=== PATIENT | female | born 1990 | race Caucasian/White ===

== ENCOUNTER 2016-12-05 09:43 | Inpatient (IN) | payer OTHER ==
[~2016-12-05] VITALS: Ht 154.9 cm; Wt 80.0 kg
[2016-12-05] MEDS ORDERED: MISOPROSTOL 200 MCG TAB PR PRN ×3 (10:00→18:30)
[2016-12-05] MEDS ORDERED: CEFAZOLIN 2 GM/50 ML (PMX) 50 ML IV SCH ×2 (10:00→18:30)
[2016-12-05] MEDS ORDERED: CARBOPROST 250 MCG INJ IM PRN ×3 (10:00→18:30)
[2016-12-05] MEDS ORDERED: METHYLERGONOVINE 0.2 MG INJ IM PRN ×3 (10:00→18:30)
[2016-12-05] MEDS ORDERED: OXYTOCIN 30 UNITS/LR 500 ML IV PRN ×3 (10:00→18:30)
--- NOTE | 2016-12-05 10:11 | TRIAGE ---
OB Triage Datetime Report Generated by CPN: 12/05/2016 10:11 Datetime: 12/05/2016 10:10 Assessment Type: Admission Assessment Vaginal Bleeding: None Maternal Assessment Level of Consciousness: Fully Conscious DTR's/Clonus: DTRs 2+; No Clonus Headache: Denies Blurred Vision: No Respiratory Effort: Unlabored; Regular Rhythm; Equal Expansion Breath Sounds, Left: Clear and Equal Breath Sounds, Right: Clear and Equal Nausea/Vomiting: Denies RUQ Epigastric Pain: Denies Facial Edema: None Fall Risk Assessment History of Falling: (0) No Secondary Diagnosis: (0) No Ambulatory Aid: (0) Bedrest/Nurse Assist IV Therapy: (0) No Gait: (0) Normal/Bedrest/Immobile Mental Status: (0) Oriented to Own Ability Pain Assessment Pain Scale: 9 Datetime: 12/05/2016 10:08 Time of Arrival: 12/05/2016 10:00 EGA: 39.0 Arrived By: Ambulatory Arrived From: Home Chief Complaint: UCS SINCE 0500 Movement: Present Contractions: Regular Time Contractions Began: 12/05/2016 05:00 Contractions: Q 10 AT HOME Rupture of Membranes: Denies Vaginal Bleeding: None Vaginal Discharge: Denies Recent Sexual Intercouse: Denies Abdominal Trauma: Not Applicable Patient Complaints: Contractions Time Provider Notified: 12/05/2016 10:05 Provider Notified: DR ROSAS Initial Plan: EFM,ALL DR ROSAS Datetime: 12/05/2016 10:07 Maternal Assessment Level of Consciousness: Fully Conscious DTR's/Clonus: DTRs 2+; No Clonus Headache: Denies Blurred Vision: No Respiratory Effort: Unlabored; Regular Rhythm; Equal Expansion Breath Sounds, Left: Clear and Equal Breath Sounds, Right: Clear and Equal Nausea/Vomiting: Denies RUQ Epigastric Pain: Denies Facial Edema: None Temperature Route: Axillary Fall Risk Assessment History of Falling: (0) No Secondary Diagnosis: (0) No Ambulatory Aid: (0) Bedrest/Nurse Assist IV Therapy: (0) No Gait: (0) Normal/Bedrest/Immobile Mental Status: (0) Oriented to Own Ability Fall Score: 0 Fall Risk Score Definition: No Risk: No action required
[2016-12-05 10:14] VITALS: Ht 154.9 cm; Wt 80.0 kg
[2016-12-05 10:15] VITALS: BP 125/70; PULSE 77; RESP 20
[2016-12-05] MEDS ORDERED: PREN1TAB79 PO (10:20)
[2016-12-05 10:24] LABS: ADD SCAN DIFF NO
[2016-12-05] MEDS: LACTATED RINGER'S 1,000 ML IV SCH ×2 (10:31→11:43)
[2016-12-05 10:33] LABS: BASOPHILS % 0.2 % (0.0-2.0); EOSINOPHILS # 0.3 10^3/ul (0.0-0.5); EOSINOPHILS % 3.5 % (0.0-7.0); HEMATOCRIT 32.4 % (37.0-47.0); HEMOGLOBIN 10.3 g/dl (12.0-16.0); LYMPHOCYTES # 2.2 10^3/ul (0.8-2.9); LYMPHOCYTES % 25.2 % (15.0-51.0); MEAN CORPUSCULAR HEMOGLOBIN 26.5 pg (29.0-33.0); MEAN CORPUSCULAR HGB CONC 31.8 g/dl (32.0-37.0); MEAN CORPUSCULAR VOLUME 83.5 fl (82.0-101.0); MEAN PLATELET VOLUME 11.4 fl (7.4-10.4); MONOCYTE # 0.5 10^3/ul (0.3-0.9); MONOCYTES % 5.5 % (0.0-11.0); NEUTROPHIL # 5.7 10^3/ul (1.6-7.5); NEUTROPHILS % 65.1 % (39.0-77.0); PLATELET COUNT 183 10^3/UL (140-415); RED BLOOD COUNT 3.88 10^6/ul (4.20-5.40); RED CELL DISTRIBUTION WIDTH 15.2 % (11.5-14.5); WHITE BLOOD COUNT 8.7 10^3/ul (4.8-10.8)
[2016-12-05 11:12] LABS: INR 0.85; PROTIME 11.6 Sec (12.2-14.2); PT RATIO 0.9
[2016-12-05 11:13] LABS: PARTIAL THROMBOPLASTIN TIME 28.8 Sec (25.0-35.0)
[2016-12-05] MEDS ORDERED: OXYTOCIN 10 UNIT INJ ONE (12:06)
[2016-12-05] MEDS ORDERED: PHENYLephrine (100 MCG/ML) 5ML SYG ONE (12:06)
[2016-12-05] MEDS ORDERED: METOCLOPRAMIDE 10 MG INJ ONE (12:06)
[2016-12-05] MEDS ORDERED: morphine SULFATE/PF (10 MG/10 ML) INJ ONE (12:06)
[2016-12-05] MEDS ORDERED: FENTAnyl 50 MCG/ML VIAL ONE (12:06)
[2016-12-05] MEDS ORDERED: ONDANSETRON 4 MG INJ IV PRN ×4 (13:00→18:30)
[2016-12-05] MEDS ORDERED: DIPHENHYDRAMINE 50 MG INJ IV PRN ×4 (13:00→18:30)
[2016-12-05] MEDS ORDERED: KETOROLAC 30 MG INJ IV PRN ×2 (13:00→18:30)
[2016-12-05] MEDS ORDERED: HYDROmorphONE (0.2 MG/ML) 10ML SYG IV PRN ×6 (13:00→18:30)
[2016-12-05] MEDS ORDERED: TRIMETHOBENZAMIDE 100 MG/ML VIAL IM PRN ×2 (13:00→18:30)
[2016-12-05] MEDS ORDERED: EPHEDrine SULFATE 50 MG/5 ML SYG IV PRN ×2 (13:00→18:30)
[2016-12-05] MEDS ORDERED: LABETALOL HCL 20MG INJ IV PRN ×2 (13:00→18:30)
[2016-12-05] MEDS ORDERED: MIDAZOLAM 1 MG/ML 2 ML INJ IV PRN ×2 (13:00→18:30)
[2016-12-05] MEDS ORDERED: ZOLPIDEM 5 MG TAB PO PRN ×2 (13:00→18:30)
[2016-12-05] MEDS ORDERED: hydrALAzine 20 MG INJ IV PRN ×2 (13:00→18:30)
[2016-12-05] MEDS ORDERED: FENTAnyl 50 MCG/ML VIAL IV PRN ×6 (13:00→18:30)
[2016-12-05] MEDS ORDERED: morphine 2 MG INJ IV PRN ×4 (13:00→18:30)
[2016-12-05] MEDS ORDERED: NALOXONE (0.4 MG/ML) INJ IV PRN ×2 (13:00→18:30)
[2016-12-05] MEDS ORDERED: MEPERIDINE 25 MG INJ IV PRN ×2 (13:00→18:30)
--- NOTE | 2016-12-05 14:45 | HP ---
Date/Time of Note Date/Time of Note DATE: 12/05/16 TIME: 14:29 OB - History Hx of Present Free Text/Dictation This is a 26 years old female 7 para 6 with EDC of December 12, 2016 at 39 weeks gestation with the history of 6 previous section and requests for bilateral tubal ligation at the time of section, admitted to [facility] labor and delivery room being prepared to undergo repeat section she has recently transferred her care from another clinic to [facility] and according to her record her was not complicated with gestational diabetes -induced hypertension the only significant issue regarding her past surgical history is 6 previous section She has requested voluntary sterilization bilateral tubal ligation at the time of her section the failure rate of this procedure increased risks of ectopic in the future failure to conceive has been discussed with the patient extensively knowing all the above she would like to proceed with the tubal ligation at the time of her section. Estimated Due Date: Dec 12, 2016 : 7 Para: 6 Care: Limited Care Ultrasounds: Normal mid trimester US Obstetrical Complications: None Medical Complications: None Past Family/Social History * Past Medical, Surgical, Family and Obstetric Histories reviewed from chart. Rubella: immune RPR/VDRL: Negative GBS Status: Negative HBsAG: Negative OB Admission Exam Vital Signs Vital Signs Vital Signs Date Time Temp Pulse Resp B/P Pulse Ox O2 Delivery O2 Flow Rate FiO2 12/05/16 10:15 98.3 77 20 125/70 Room Air Physical Exam HEENT: WNL Heart: Rhythm Normal Lungs: Clear, Equal Abdomen: WNL Extremities: Normal Cervical Dilatation: other (No pelvic examination) Accelerations: Accelerations Present Decelerations: No Decelerations Intensity: Mild Last 72 hours Lab Results CBC & BMP 12/05/16 09:30 OB Assessment/Plan Reason for admission: other (Repeat section, bilateral tubal ligation) Plan: Section, Other (Complication of the section for the seventh time and bilateral tubal ligation including but not limited to bowel and bladder injury wound infection hemorrhage wound dehiscence has been discussed with the patient and she would like to proceed with the operation ) FRANCA ROSAS MD December 05, 2016 14:39
--- NOTE | 2016-12-05 17:09 | OPR ---
DATE OF OPERATION: 12/05/2016 PREOPERATIVE DIAGNOSES: 1. Intrauterine at 39 weeks' gestation. 2. History of 6 previous section. 3. Request for voluntary sterilization, bilateral tubal ligation at the time of section. POSTOPERATIVE DIAGNOSES: 1. Intrauterine at 39 weeks' gestation. 2. History of previous section. 3. Request for voluntary sterilization, bilateral tubal ligation at the time of section. PROCEDURE: Repeat transverse low cervical section, bilateral tubal ligation. SURGEON: Franca Mendoza MD [employer] CHIEF: Alfonso Thompson MD ANESTHESIA: Spinal. ANESTHESIOLOGIST: Dr. Salazar. FINDINGS: Live baby girl with the 8 and 9. Baby weight 7 pounds 6 ounces. DETAILS OF THE PROCEDURE: Under satisfactory spinal anesthesia, the patient was prepped and draped and placed in supine position, tilted to the left. Pfannenstiel incision was made, incision carried through the subcutaneous tissue. Bleeders brought under control with electrocautery. Fascia incis ed to the length of the incision. Rectus muscle divided in midline. Peritoneum entered through a t ransverse incision. Exploration of abdomen revealed a gravid uterus, normal appearing tubes and ova manan, extremely thinned out lower segment of the uterus to the thickness of 1 mm. Bladder flap gent ly was developed. Transverse incision was made in the lower segment of the uterus. Amniotic sac ru ptured. Clear amniotic fluid noted. Live baby girl was delivered from unengaged vertex. Nasal oropharyngeal suction was performed and b aron handed to the team for immediate attention. Patient received 20 units of Pitocin. Venus centa delivered manually intact. Uterine cavity cleaned with wet sponge and drainage established. Uterus closed in 2 layers using Monocryl #1 in continuous fashion. Bilateral tubal ligation perform ed by identifying the fimbria and the ampullar section of the right fallopian tube. Suture material used #0 plain catgut was reinforced with the same suture material. That portion of the tube was ex cised, the cut end of the tube was cauterized and the specimen submitted to pathology. The same pro cedure performed for the opposite side. Peritoneal cavity irrigated with warm saline. A second sponge, needle and instrument reported to be correct. Abdominal peritoneum closed with 2-0 chromic catgut continuously. Rectus muscle approxim ated with few interrupted 2-0 chromic catgut. Fascia closed with #1 PDS in a continuous fashion. S ubcutaneous tissue approximated with 2-0 chromic catgut. Skin closed with sobia. Estimated blood loss 600 mL. Urine bag contained 200 mL of clear urine. Patient tolerated procedure well, transfe rred to recovery room in a good condition. Dictated By: FRANCA SMITH/DELIA Conf#: [id number] DID#: [id number]
[2016-12-05] MEDS ORDERED: OXYTOCIN 30 UNITS/LR 500 ML IVPB ONE (17:34)
[2016-12-05 18:00] VITALS: BP 116/67; PULSE 70; RESP 18
[2016-12-05] MEDS ORDERED: OXYTOCIN 30 UNITS/LR 500 ML IV SCH (18:11)
[2016-12-05] MEDS ORDERED: LACTATED RINGER'S 1,000 ML IV SCH (18:16)
[2016-12-05] MEDS ORDERED: LANOLIN 7 GM TUBE TOP PRN (18:30)
[2016-12-05] MEDS ORDERED: OXYCODONE/ACETAMINOPHEN (5/325) TAB PO PRN (18:30)
[2016-12-05] MEDS ORDERED: CEFAZOLIN 1 GM/50 ML (PMX) 50 ML IVPB SCH ×2 (18:30→20:30)
[2016-12-05] MEDS ORDERED: ACETAMINOPHEN/CODEINE #3 TAB PO PRN ×2 (18:30)
[2016-12-05 19:45] VITALS: BP 111/58; PULSE 72; RESP 18
[2016-12-05] MEDS: SENNA/DOCUSATE NA (8.6MG/50MG) TAB PO SCH (20:48)
[2016-12-05] MEDS: IBUPROFEN 600 MG TAB PO SCH (23:40)
[2016-12-06 00:02] VITALS: BP 115/58; PULSE 66; RESP 18
[2016-12-06 04:00] VITALS: BP 116/75; PULSE 70; RESP 18
[2016-12-06] MEDS: IBUPROFEN 600 MG TAB PO SCH ×4 (06:00→23:34)
[2016-12-06 07:19] LABS: ADD SCAN DIFF NO
[2016-12-06 07:29] LABS: BASOPHILS % 0.3 % (0.0-2.0); EOSINOPHILS # 0.2 10^3/ul (0.0-0.5); EOSINOPHILS % 1.7 % (0.0-7.0); HEMATOCRIT 24.6 % (37.0-47.0); LYMPHOCYTES # 1.8 10^3/ul (0.8-2.9); LYMPHOCYTES % 18.1 % (15.0-51.0); MEAN CORPUSCULAR HEMOGLOBIN 27.5 pg (29.0-33.0); MEAN CORPUSCULAR HGB CONC 32.5 g/dl (32.0-37.0); MEAN CORPUSCULAR VOLUME 84.5 fl (82.0-101.0); MEAN PLATELET VOLUME 11.5 fl (7.4-10.4); MONOCYTE # 0.6 10^3/ul (0.3-0.9); NEUTROPHIL # 7.3 10^3/ul (1.6-7.5); NEUTROPHILS % 73.5 % (39.0-77.0); PLATELET COUNT 153 10^3/UL (140-415); RED BLOOD COUNT 2.91 10^6/ul (4.20-5.40); RED CELL DISTRIBUTION WIDTH 15.1 % (11.5-14.5); WHITE BLOOD COUNT 9.9 10^3/ul (4.8-10.8)
[2016-12-06 08:00] VITALS: BP 113/65; PULSE 88; RESP 18
[2016-12-06] MEDS: SENNA/DOCUSATE NA (8.6MG/50MG) TAB PO SCH ×2 (08:24→21:09)
--- NOTE | 2016-12-06 11:57 | PN ---
Date/Time of Note Date/Time of Note DATE: 12/06/16 TIME: 11:56 OB Subjective Subjective Subjective Post day 1 Afebrile vital signs stable abdomen soft incision dry mild abdominal distention bowel sounds present lochia moderate extremity normal ambulation encouraged diet advanced as tolerated Laboratory Tests Test 12/06/16 06:45 White Blood Count 9.910^3/ul Red Blood Count 2.9110^6/ul Hemoglobin 8.0g/dl Hematocrit 24.6% Mean Corpuscular Volume 84.5fl Mean Corpuscular Hemoglobin 27.5pg Mean Corpuscular Hemoglobin Concent 32.5g/dl Red Cell Distribution Width 15.1% Platelet Count 78094^3/UL Mean Platelet Volume 11.5fl Neutrophils % 73.5% Lymphocytes % 18.1% Monocytes % 6.0% Eosinophils % 1.7% Basophils % 0.3% Nucleated Red Blood Cells % 0.0/100WBC Neutrophils # 7.310^3/ul Lymphocytes # 1.810^3/ul Monocytes # 0.610^3/ul Eosinophils # 0.210^3/ul Basophils # 0.010^3/ul Nucleated Red Blood Cells # 0.010^3/ul Current Medications Medications (Trade) Dose Ordered Sig/[place] Route PRN Reason Start Time Stop Time Status Last Admin Dose Admin Lactated Ringer's 1,000 ml @ 125 mls/hr Q8H IV 12/05/16 09:58 12/05/16 18:26 DC 12/05/16 11:43 Cefazolin Sodium/ Dextrose 50 ml @ 100 mls/hr ONCE IV 12/05/16 10:00 12/05/16 18:26 DC Oxytocin/Lactated Ringer's 500 ml @ 0 mls/hr ONCE PRN IV For Hemorrhage Management 12/05/16 10:00 12/05/16 18:26 DC 12/05/16 14:16 Methylergonovine Maleate (Methergine) 0.2 mg ONCE PRN IM VAGINAL BLEEDING 12/05/16 10:00 12/05/16 18:26 DC Carboprost Tromethamine (Hemabate) 250 mcg ONCE PRN IM VAGINAL BLEEDING 12/05/16 10:00 12/05/16 18:26 DC Misoprostol (Cytotec) 1,000 mcg ONCE PRN [place] VAGINAL BLEEDING 12/05/16 10:00 12/05/16 18:26 DC Morphine Sulfate (Duramorph) 10 mg STK-MED ONCE .ROUTE 12/05/16 12:06 12/05/16 12:07 DC Fentanyl (Sublimaze) 100 mcg STK-MED ONCE .ROUTE 12/05/16 12:06 12/05/16 12:07 DC Metoclopramide HCl (Reglan) 10 mg STK-MED ONCE .ROUTE 12/05/16 12:06 12/05/16 12:07 DC Oxytocin (Oxytocin) 10 units STK-MED ONCE .ROUTE 12/05/16 12:06 12/05/16 12:07 DC Phenylephrine HCl (Robert-Synephrine Inj Syg) 500 mcg STK-MED ONCE .ROUTE 12/05/16 12:06 12/05/16 12:07 DC Hydromorphone HCl (Dilaudid (Rec)) 0.2 mg PACU ORDER PRN IV MILD PAIN LEVEL 1-3 12/05/16 13:00 12/05/16 18:27 DC Hydromorphone HCl (Dilaudid (Rec)) 0.4 mg PACU ORDER PRN IV MODERATE PAIN LEVEL 4-6 12/05/16 13:00 12/05/16 18:27 DC Hydromorphone HCl (Dilaudid (Rec)) 0.6 mg PACU ORDER PRN IV SEVERE PAIN LEVEL 7-10 12/05/16 13:00 12/05/16 18:27 DC Fentanyl (Sublimaze) 25 mcg PACU ORDER PRN IV MILD PAIN LEVEL 1-3 12/05/16 13:00 12/05/16 18:27 DC Fentanyl (Sublimaze) 50 mcg PACU ODER PRN IV MODERATE PAIN LEVEL 4-6 12/05/16 13:00 12/05/16 18:27 DC Fentanyl (Sublimaze) 75 mcg PACU ORDER PRN IV SEVERE PAIN LEVEL 7-10 12/05/16 13:00 12/05/16 18:27 DC Ondansetron HCl (Zofran Inj) 4 mg PACU ORDER PRN IV NAUSEA AND/OR VOMITING 12/05/16 13:00 12/05/16 18:27 DC Trimethobenzamide HCl (Tigan) 200 mg PACU ORDER PRN IM NAUSEA AND/OR VOMITING 12/05/16 13:00 12/05/16 18:27 DC Labetalol HCl (Labetalol) 5 mg PACU ORDER PRN IV HIGH BLOOD PRESSURE 12/05/16 13:00 12/05/16 18:27 DC Hydralazine HCl (Apresoline) 5 mg PACU ORDER PRN IV HIGH BLOOD PRESSURE 12/05/16 13:00 12/05/16 18:27 DC Ephedrine Sulfate 5 mg PACU ORDER PRN IV MAP LESS THAN 60 12/05/16 13:00 12/05/16 18:27 DC Meperidine HCl (Demerol) 25 mg PACU ORDER PRN IV POST-OP RIGORS 12/05/16 13:00 12/05/16 18:27 DC Diphenhydramine HCl (Benadryl) 25 mg PACU ORDER PRN IV PRURITUS 12/05/16 13:00 12/05/16 18:27 DC Midazolam HCl (Versed) 0.5 mg PACU ORDER PRN IV ANXIETY 12/05/16 13:00 12/05/16 18:27 DC Naloxone HCl (Narcan) 0.1 mg Q2M PRN IV FOR RESP RATE 8 OR LESS 12/05/16 13:00 12/05/16 18:27 DC Ketorolac Tromethamine (Toradol) 30 mg Q6H PRN IV PAIN 12/05/16 13:00 12/05/16 18:27 DC 12/05/16 15:29 Morphine Sulfate (morphine) 2 mg Q3H PRN IV PAIN LEVEL 1-5 12/05/16 13:00 12/05/16 18:27 DC Morphine Sulfate (morphine) 4 mg Q3H PRN IV PAIN LEVEL 6-10 12/05/16 13:00 12/05/16 18:27 DC Diphenhydramine HCl (Benadryl) 25 mg Q6H PRN IV ITCHING 12/05/16 13:00 12/05/16 18:27 DC Ondansetron HCl (Zofran Inj) 4 mg Q6H PRN IV NAUSEA AND/OR VOMITING 12/05/16 13:00 12/05/16 18:27 DC Zolpidem Tartrate (Ambien) 5 mg HS MAY REPEAT X 1 PRN PO INSOMNIA 12/05/16 13:00 12/05/16 18:27 DC Miscellaneous Information Duramorph: 0.2 mg Spi... GIVEN XX 12/05/16 13:00 12/05/16 13:01 DC Oxytocin/Lactated Ringer's 500 ml @ 125 mls/hr ONCE ONCE IVPB 12/05/16 17:34 12/05/16 18:27 DC 12/05/16 17:41 Acetaminophen/ Codeine Phosphate (Tylenol No.3) 1 tab Q4H PRN PO PAIN LEVEL 4-6 12/05/16 18:30 Acetaminophen/ Codeine Phosphate (Tylenol No.3) 2 tab Q4H PRN PO PAIN LEVEL 7-10 12/05/16 18:30 Oxycodone/ Acetaminophen (Percocet (5/ 325)) 1 tab Q4H PRN PO PAIN LEVEL 4-6 12/05/16 18:30 Oxycodone/ Acetaminophen (Percocet (5/ 325)) 2 tab Q4H PRN PO PAIN LEVEL 7-10 12/05/16 18:30 Ibuprofen (Motrin) 600 mg Q6 PO 12/06/16 00:00 Simethicone (Mylicon) 160 mg Q8H PRN PO DISTENSION/GAS/BLOATING 12/05/16 18:30 12/06/16 08:24 Senna/Docusate Sodium (Senokot-S) 1 tab BID PO 12/05/16 21:00 12/06/16 08:24 Lanolin (Gzo-[id number]) 1 applic BEDSIDE MEDICATION PRN TOP BEDSIDE FOR VIDA TO NIPPLES 12/05/16 18:30 Diphtheria/ Tetanus/Acell Pertussis 0.5 ml 0.5 ml ONCE ONCE IM* 12/08/16 09:00 12/08/16 09:01 Oxytocin/Lactated Ringer's 500 ml @ 0 mls/hr ONCE PRN IV For Hemorrhage Management 12/05/16 18:30 Methylergonovine Maleate (Methergine) 0.2 mg ONCE PRN IM VAGINAL BLEEDING 12/05/16 18:30 Carboprost Tromethamine (Hemabate) 250 mcg ONCE PRN IM VAGINAL BLEEDING 12/05/16 18:30 Misoprostol 1000 mcg 1,000 mcg ONCE PRN [place] VAGINAL BLEEDING 12/05/16 18:30 Cefazolin Sodium 50 ml @ 100 mls/hr ONCE IVPB 12/05/16 18:30 12/05/16 18:33 DC Oxytocin/Lactated Ringer's 500 ml @ 125 mls/hr Q4H IV 12/05/16 18:11 12/05/16 21:56 Cefazolin Sodium/ Dextrose 50 ml @ 100 mls/hr ONCE IV 12/05/16 18:30 Lactated Ringer's 1,000 ml @ 125 mls/hr Q8H IV 12/05/16 18:16 12/06/16 01:47 Oxytocin/Lactated Ringer's 500 ml @ 0 mls/hr ONCE PRN IV For Hemorrhage Management 12/05/16 18:30 Carboprost Tromethamine (Hemabate) 250 mcg ONCE PRN IM VAGINAL BLEEDING 12/05/16 18:30 Diphenhydramine HCl (Benadryl) 25 mg PACU ORDER PRN IV PRURITUS 12/05/16 18:30 Diphenhydramine HCl (Benadryl) 25 mg Q6H PRN IV ITCHING 12/05/16 18:30 12/06/16 18:29 Ephedrine Sulfate 5 mg PACU ORDER PRN IV MAP LESS THAN 60 12/05/16 18:30 Fentanyl (Sublimaze) 25 mcg PACU ORDER PRN IV MILD PAIN LEVEL 1-3 12/05/16 18:30 12/05/16 23:00 DC Fentanyl (Sublimaze) 50 mcg PACU ODER PRN IV MODERATE PAIN LEVEL 4-6 12/05/16 18:30 12/05/16 23:00 DC Fentanyl (Sublimaze) 75 mcg PACU ORDER PRN IV SEVERE PAIN LEVEL 7-10 12/05/16 18:30 12/05/16 23:00 DC Hydralazine HCl (Apresoline) 5 mg PACU ORDER PRN IV HIGH BLOOD PRESSURE 12/05/16 18:30 Hydromorphone HCl (Dilaudid (Rec)) 0.2 mg PACU ORDER PRN IV MILD PAIN LEVEL 1-3 12/05/16 18:30 12/05/16 23:00 DC Hydromorphone HCl (Dilaudid (Rec)) 0.4 mg PACU ORDER PRN IV MODERATE PAIN LEVEL 4-6 12/05/16 18:30 12/05/16 23:00 DC Hydromorphone HCl (Dilaudid (Rec)) 0.6 mg PACU ORDER PRN IV SEVERE PAIN LEVEL 7-10 12/05/16 18:30 12/05/16 23:00 DC Ketorolac Tromethamine (Toradol) 30 mg Q6H PRN IV PAIN 12/05/16 18:30 12/06/16 18:29 12/06/16 08:24 Labetalol HCl (Labetalol) 5 mg PACU ORDER PRN IV HIGH BLOOD PRESSURE 12/05/16 18:30 Meperidine HCl (Demerol) 25 mg PACU ORDER PRN IV POST-OP RIGORS 12/05/16 18:30 Methylergonovine Maleate (Methergine) 0.2 mg ONCE PRN IM VAGINAL BLEEDING 12/05/16 18:30 Midazolam HCl (Versed) 0.5 mg PACU ORDER PRN IV ANXIETY 12/05/16 18:30 Misoprostol (Cytotec) 1,000 mcg ONCE PRN [place] VAGINAL BLEEDING 12/05/16 18:30 Morphine Sulfate (morphine) 2 mg Q3H PRN IV PAIN LEVEL 1-5 12/05/16 18:30 12/06/16 18:29 Morphine Sulfate (morphine) 4 mg Q3H PRN IV PAIN LEVEL 6-10 12/05/16 18:30 12/06/16 18:29 Naloxone HCl (Narcan) 0.1 mg Q2M PRN IV FOR RESP RATE 8 OR LESS 12/05/16 18:30 12/06/16 18:29 Ondansetron HCl (Zofran Inj) 4 mg PACU ORDER PRN IV NAUSEA AND/OR VOMITING 12/05/16 18:30 12/05/16 23:00 DC Ondansetron HCl (Zofran Inj) 4 mg Q6H PRN IV NAUSEA AND/OR VOMITING 12/05/16 18:30 12/06/16 18:29 Miscellaneous Information (* Miscellaneous Pharmacy Order) Duramorph: 0.2 mg Spi... GIVEN XX 12/05/16 18:30 Trimethobenzamide HCl (Tigan) 200 mg PACU ORDER PRN IM NAUSEA AND/OR VOMITING 12/05/16 18:30 Zolpidem Tartrate 5 mg 5 mg HS MAY REPEAT X 1 PRN PO INSOMNIA 12/05/16 18:30 12/06/16 18:29 Cefazolin Sodium (Ancef 1 Gm/50 ml (Pmx)) 50 ml @ 100 mls/hr ONCE IVPB 12/05/16 20:30 12/05/16 20:59 DC 12/05/16 19:56 FRANCA ROSAS MD December 06, 2016 11:57
[2016-12-06 12:00] VITALS: BP 116/62; PULSE 140; PULSE 83; RESP 18
[2016-12-06 16:00] VITALS: BP 113/59; PULSE 83; RESP 18
[2016-12-06 19:40] VITALS: BP 119/63; PULSE 85; RESP 19
[2016-12-07] MEDS: OXYCODONE/ACETAMINOPHEN (5/325) TAB PO PRN ×4 (00:44→21:03)
[2016-12-07 04:00] VITALS: BP 114/61; PULSE 78; RESP 19
[2016-12-07] MEDS: IBUPROFEN 600 MG TAB PO SCH ×3 (05:31→18:30)
[2016-12-07 08:10] VITALS: BP 107/67; PULSE 66; RESP 16
[2016-12-07] MEDS: SENNA/DOCUSATE NA (8.6MG/50MG) TAB PO SCH ×2 (08:24→21:02)
--- NOTE | 2016-12-07 09:56 | PN ---
Date/Time of Note Date/Time of Note DATE: 12/07/16 TIME: 09:54 OB Subjective Subjective Subjective Post day 2 Afebrile vital signs stable abdomen soft lochia moderate incision healing well bowel sounds present able to pass flatus no bowel movement enema recommended ambulation encouraged FRANCA ROSAS MD December 07, 2016 09:56
[2016-12-07] MEDS: NA PHOSPHATE/BIPHOS 133 ML ENEMA PR ONE ×2 (10:00→11:56)
[2016-12-07 15:50] VITALS: BP 121/81; PULSE 82; RESP 18
[2016-12-07 19:35] VITALS: BP 120/59; PULSE 86; RESP 18
[2016-12-08] MEDS: IBUPROFEN 600 MG TAB PO SCH ×3 (00:13→11:51)
[2016-12-08] MEDS: OXYCODONE/ACETAMINOPHEN (5/325) TAB PO PRN ×2 (04:40→10:02)
[2016-12-08 04:44] VITALS: BP 108/78; PULSE 80; RESP 18
[2016-12-08 08:30] VITALS: BP 109/63; PULSE 81; RESP 18
[2016-12-08] MEDS ORDERED: DIPHTH/TET/ACEL PERTUSS (ADULT) 0.5 ML VIAL IM* ONE (09:00)
[2016-12-08] MEDS: SENNA/DOCUSATE NA (8.6MG/50MG) TAB PO SCH (09:00)
--- NOTE | 2016-12-08 13:59 | PD.PPDC ---
POST OFFICE MARKUP CLERK Discharge Instruction Condition Patient Condition: Good Diet Diet: Resume Regular Diet Activity/Restrictions Activity: Normal Activity Restrictions: No Exercising No Lifting No Driving No Sexual Activity Nothing in the Vagina No [employer] No Tampons, douche Follow-up Follow-up with Physician: 1, 6, Week/Weeks Return to clinic for FIELD MARKETER Instructions: Fever greater than 101 Chills Worsening abdominal pain Excessive Vaginal Bleeding More than 2 pads per hour Unable to tolerate diet OB Instructions: Breast Tenderness Depression Blurried Vision Headache BRITT TOMAS MD December 08, 2016 13:59
--- NOTE | 2016-12-08 14:12 | PN ---
Date/Time of Note Date/Time of Note DATE: 12/08/16 TIME: 14:09 OB Subjective Subjective Subjective postoperative day #3 Ambulated. Passed flatus. Breast-feeding. Reports pain in the mid abdomen. Tolerated regular diet. Denies any symptoms. Denies any dizziness, lightheadedness or any other complaints. OB Objective Objective Objective General appearance: Alert and oriented 4 patient does not appear to be in any acute distress. Abdomen: Soft, appropriate tenderness in the incision. No rebound tenderness, no guarding, no rigidity, Incision: Clean dry and intact. Extremities: 2+ nonpitting bilateral symmetric edema. No calf tenderness, no cords palpable, negative Homans sign. Breasts: No engorgement, no fissure Hematology - 72 Hrs Test 12/06/16 06:45 White Blood Count 9.910^3/ul (4.8-10.8) Red Blood Count 2.9110^6/ul (4.20-5.40) #L Hemoglobin 8.0g/dl (12.0-16.0) #L Hematocrit 24.6% (37.0-47.0) #L Mean Corpuscular Volume 84.5fl (82.0-101.0) Mean Corpuscular Hemoglobin 27.5pg (29.0-33.0) L Mean Corpuscular Hemoglobin Concent 32.5g/dl (32.0-37.0) Red Cell Distribution Width 15.1% (11.5-14.5) H Platelet Count 92889^3/UL (140-415) Mean Platelet Volume 11.5fl (7.4-10.4) H Neutrophils % 73.5% (39.0-77.0) Lymphocytes % 18.1% (15.0-51.0) Monocytes % 6.0% (0.0-11.0) Eosinophils % 1.7% (0.0-7.0) Basophils % 0.3% (0.0-2.0) Nucleated Red Blood Cells % 0.0/100WBC (0.0-0.0) Neutrophils # 7.310^3/ul (1.6-7.5) Lymphocytes # 1.810^3/ul (0.8-2.9) Monocytes # 0.610^3/ul (0.3-0.9) Eosinophils # 0.210^3/ul (0.0-0.5) Basophils # 0.010^3/ul (0.0-0.1) Nucleated Red Blood Cells # 0.010^3/ul (0.0-0.0) OB Assessment/Plan Other Assessment: Status post section Postoperative day #3 Postop anemia, likely under estimated blood loss. Patient is asymptomatic. Ambulating without any symptoms. Other plan: DC home. Follow-up in 1 week for staple removal and 6 weeks with her OB office Strict precaution was given to go to her OB clinic if she has any abnormal discharge from the incision, increased abdominal pain or any other concern Strict precaution was given to return to ED if she has any fever, chills, increased pain that does not go away with pain medication, breast tenderness, erythema, depression or any other concerns Patient verbalized understanding. BRITT TOMAS MD December 08, 2016 14:12
--- NOTE | 2016-12-08 16:16 | DS ---
Date/Time of Note Date/Time of Note DATE: 12/08/16 TIME: 16:15 Obstetrical Discharge Record Final Diagnosis Final Diagnosis: Term delivered Section Section: Repeat Complications Augmentation: No Induction: No Rupture of Membranes: No Condition on Discharge Physical Assessment Voiding: Yes Bowel Movement: Yes Breast: Soft, non-tender Fundus: Firm Calf Tenderness: No Patient Condition: Good BRITT TOMAS MD December 08, 2016 16:15
== END 2016-12-08 16:30 | disposition home or self-care (01) | DRG 766 ==
LOC: OBT 09:43 → L-D 09:45 → OBT 10:00 → L-D 10:00 → PP1 18:07
PROVIDERS: ADMIT Obstetrics & Gynecology; ATTEND Obstetrics & Gynecology
PROC: 0UL70ZZ Occlusion of Bilateral Fallopian Tubes, Open Approach (ICD-10-PCS; 2016-12-05)
PROC: 10D00Z1 Extraction of Products of Conception, Low, Open Approach (ICD-10-PCS; principal; 2016-12-05 12:30)
DX: O34.211 Maternal care for low transverse scar from previous cesarean delivery (principal); Z30.2 Encounter for sterilization; Z3A.39 39 weeks gestation of pregnancy; Z37.0 Single live birth
CPT/HCPCS: 85025; 85610; 85730; 86592; 86850; 86900; 86901; 86920; 87340; 88302; 90715; 94760; 99464; G0463; J0690; J1885; J2274; J2370; J2590; J2765; J3010; J7120